=== PATIENT | female | born 1985 | race Caucasian/White ===

== ENCOUNTER 2023-07-12 22:11 | Emergency (ER) | payer OTHER, SELFPAY ==
--- NOTE | ~2023-07-12 | CT_ITS ---
EXAMINATION: CT abdomen pelvis wo con DATE: 07/12/2023 22:57 INDICATION: R flank pain, dysuria, N/V< r/o stone TECHNIQUE: Computed tomography (CT) of the abdomen and pelvis was performed without intravenous contr ast. Automated exposure control and iterative reconstruction technique were employed. The dose-length product was 822.21 mGy-cm. COMPARISON: None. FINDINGS: Lower thorax: Unremarkable Liver: Normal. Biliary/Gallbladder: Gallbladder is absent. No bile duct dilation. Pancreas: No mass or duct dilation. Spleen: Normal. Adrenals:No mass. Kidneys: Mild right perinephric stranding and renal enlargement. Moderate right hydronephrosis. Bilat eral nonobstructing 4 mm stones. Medullary nephrocalcinosis. GI tract: No small or large bowel dilation. Status post appendectomy. Diverticulosis without divertic ulitis. Mesentery/Peritoneum: No ascites, mass, or free air. Retroperitoneum: No mass. Pelvis: Empty urinary bladder. 4 mm right UVJ stone. Absent uterus. Soft Tissues: Soft tissues and body wall unremarkable. Bones: No acute osseous finding. IMPRESSION: 4 mm right UVJ stone causing moderate obstructive uropathy. Reviewed, dictated and finalized at location K.
--- NOTE | ~2023-07-12 | XR_ITS ---
EXAM: XR abdomen/kub 1V DATE: 07/12/2023 23:30 HISTORY: 4mm uvj stone . COMPARISON: CT abdomen pelvis, same date. FINDINGS: Clear lung bases. Status post cholecystectomy and appendectomy. Normal bowel gas pattern. No organomegaly. 4 mm calcification overlying the left renal shadow. A known 4 mm right midpole calci fication is not well seen radiographically. 4 mm calcification overlying the right UVJ. Regional bone s and soft tissues normal for age. Small bone island in the left iliac wing. IMPRESSION: 4 mm right UVJ stone. Reviewed, dictated and finalized at location K. IMPRESSION: 4 mm right UVJ stone.
[2023-07-12 22:12] VITALS: BP 166/106; PULSE 88; RESP 20; TEMP 36.3; O2SAT 98
[2023-07-12 22:32] LABS: Basophils Absolute Auto 0.1 K/mm3 (0.0-0.1); Basophils Percent Auto 0.6 % (0.2-1.2); Eosinophils Absolute Auto 0.4 K/mm3 (0-0.3); Eosinophils Percent Auto 2.6 % (0-4.4); Hemoglobin 13.3 g/dL (12.0-15.0); Immature Granulocyte Absolute 0.05 K/mm3 (0.00-0.031); Immature Granulocyte Percent A 0.3 % (0-0.5); Lymphocytes Absolute Auto 3.75 K/mm3 (0.9-3.2); Lymphocytes Percent Auto 24.3 % (18.3-44.2); Mean Corpuscular HGB Conc 34.1 g/dl (32-36); Mean Platelet Volume 8.8 fl (7.4-10.4); Monocytes Absolute Auto 0.6 K/mm3 (0.1-0.6); Monocytes Percent Auto 4.1 % (2.6-8.5); Neutrophils Absolute Auto 10.5 K/mm3 (1.3-6.7); Neutrophils Percent Auto 68.1 % (45.5-73.1); Platelet Count Result 432 k/mm3 (150-375); Red Blood Count 4.43 M/mm3 (4.2-5.4); White Blood Count 15.4 K/mm3 (4.5-10.0)
[2023-07-12] MEDS: SODIUM CHLORIDE 0.9% IV 1,000 ML 999 ML IV CONT ×2 (22:32→23:22)
[2023-07-12] MEDS: ONDANSETRON INJ 4 MG/2 ML VIAL IV PUSH (22:33)
[2023-07-12] MEDS: HYDROmorphone HCL INJ (*CRX) 1 MG/ML SYR IV PUSH (22:33)
[2023-07-12 22:44] LABS: Appearance Urine Cloudy (Clear); Bacteria Urine None Seen /hpf; Bilirubin Urine Negative (Negative); Blood Urine 2+ (Negative); Color Urine Yellow (Yellow); Glucose Urine UA Negative (Negative); Ketones Urine Trace mg/dL (Negative); Leukocyte Esterase Ur Negative LEU/UL (Negative); Nitrate Urine Negative (Negative); Non Pathogenic Casts 0-2; Protein Urine 1+ mg/dL (Negative); Specific Grav Ur 1.032 (1.001-1.035); Squamous Epithelial Cell Urine Occasional /hpf (Few); Urobilinogen Urine 0.2 mg/dL (<2.0); pH Urine 6.5 (5.0-9.0)
[2023-07-12 22:49] LABS: Alanine Aminotransferase 31 U/L (6-35); Albumin Level 4.8 g/dL (3.5-5.1); Alkaline Phosphatase 64 U/L (38-126); Anion Gap 12 mmol/L (8-16); Aspartate Amino Transferase 28 U/L (14-36); Bilirubin,Total 0.6 mg/dL (0.2-1.3); Blood Urea Nitrogen 24 mg/dL (7-17); Calcium 9.6 mg/dL (8.4-10.2); Carbon Dioxide 23 mmol/L (22-30); Chloride 103 mmol/L (98-107); Estimated CRCL calculation 69 ml/min; Estimated Glomerular Filt Rate > 60; Glucose 134 mg/dL (65-110); Lipase 53 U/L (23-300); Potassium 3.6 mmol/L (3.4-5.0); Sodium 138 mmol/L (137-145)
[2023-07-12 22:52] LABS: Add Urine Microscopic? YES
--- NOTE | 2023-07-12 23:21 | ED.ABDPAIN ---
HPI - Abdominal Pain General Chief Complaint: Abdominal Pain Stated Complaint: back pain, vomiting Time Seen by Provider: 07/12/23 22:17 Source: patient Mode of arrival: ambulatory Limitations: no limitations History of Present Illness HPI narrative: Patient is a 38-year-old female who presents to the ED with report of right flank pain. Patient reports the pain began suddenly at 8 PM tonight. Pain slightly radiates around to her right lower abdomen. Pain has been constant, unable to find a comfortable position. She began to have nausea and vomiting and was unable to keep down any food or drink, which prompted her presentation. She was unable to take anything for pain. She also reports dysuria, urinary urgency with small voids. Denies hematuria. Denies fevers. Denies diarrhea or constipation. Denies history of kidney stones. She has had previous cholecystectomy, hysterectomy, 2 previous C-sections. Related Data Allergies Allergy/AdvReac Type Severity Reaction Status Date / Time Penicillins AdvReac Hives Verified 07/12/23 22:11 Review of Systems Review of Systems: CONSTITUTIONAL: Denies fever, chills, or sweats. CARDIOVASCULAR: Denies chest pain. RESPIRATORY: Denies dyspnea. GASTROINTESTINAL: See HPI. GENITOURINARY: See HPI. SKIN: Denies rash or itching. MUSCULOSKELETAL: See HPI. NEUROLOGIC: Denies headache, numbness, or weakness. All systems reviewed & are unremarkable except as noted in HPI and below Exam Narrative: GENERAL: Very uncomfortable appearing, well-nourished, in moderate distress due to pain. HEAD: Normocephalic, atraumatic. NECK: Supple. No adenopathy, no masses. RESPIRATORY: Airway patent, respirations nonlabored. Clear to auscultation bilaterally, no rales, rhonchi, wheezing. CARDIOVASCULAR: Borderline tachycardic with regular rhythm without murmurs, rubs, or gallops. Peripheral pulses 2+ and equal bilaterally. ABDOMINAL: Soft, tenderness throughout right lower abdomen, nondistended, no hepatosplenomegaly. Normoactive BS. Positive CVA tenderness on right. MUSCULOSKELETAL: Moves all extremities. Strength/ROM intact without gross deformities. Tenderness palpation in right lumbar region. SKIN: Warm, dry, normal color. No rashes. NEURO: A&O X3. Speech clear. Cranial nerves II-XII grossly intact. Steady gait. No ataxic movements. PSYCHIATRIC: Appropriate mood and affect. Normal interaction. Course Vital Signs Vital signs: Vital Signs Temperature 97.4 F L 07/12/23 22:12 Pulse Rate 88 07/12/23 22:12 Respiratory Rate 20 07/12/23 22:12 Blood Pressure 166/106 H 07/12/23 22:12 Pulse Oximetry 98 07/12/23 22:12 Oxygen Delivery Room Air 07/12/23 22:12 Temperature 97.4 F L 07/12/23 22:12 Pulse Rate 88 07/12/23 22:12 Respiratory Rate 20 07/12/23 22:12 Blood Pressure 166/106 H 07/12/23 22:12 Pulse Oximetry 98 07/12/23 22:12 Oxygen Delivery Room Air 07/12/23 22:12 MDM - Abdominal Pain MDM Narrative Medical decision making narrative: Patient presented to ED with right flank pain onset this evening, associated with dysuria, nausea, vomiting. Patient very uncomfortable appearing upon my evaluation. Suspicious for kidney stone. No previous history of kidney stone. Vitals stable. Afebrile. CBC with leukocytosis of 15.4. May be in part related to vomiting. CMP fairly unremarkable. Creatinine 1.0. No records to compare to. Urinalysis with lots of blood, 6-10 WBC, negative leuk esterase, negative nitrates. Patient denied urine complaints prior to onset of pain. Low suspicion for acute UTI. Will send for culture. CT abdomen pelvis obtained and showing 4 mm UVJ stone, mild obstructive uropathy. KUB obtained and visualized stone. Patient updated on lab and imaging findings. She is feeling much better with supportive therapy. She will be discharged with pain and nausea medicine, Flomax, close urology follow-up. She feels comfortable with this plan. Return precau
[2023-07-12] MEDS: TAMSULOSIN HCL 0.4 MG CAPSULE PO (23:22)
[2023-07-12] MEDS: KETOROLAC 30 MG/ML VIAL (*BKC) IV PUSH (23:41)
[2023-07-13 00:43] VITALS: BP 116/73; PULSE 77; RESP 15; O2SAT 100
== END 2023-07-13 00:46 | disposition home or self-care (01) ==
PROVIDERS: Emergency Provider Physician Assistant; PCP Physician Assistant
DX: N13.2 Hydronephrosis with renal and ureteral calculous obstruction (principal); R11.2 Nausea with vomiting, unspecified; Z90.710 Acquired absence of both cervix and uterus; Z90.49 Acquired absence of other specified parts of digestive tract
CPT/HCPCS: 36415; 74018; 74176; 80053; 81001; 81025; 83690; 85025; 87086; 96361; 96374; 96375; 99284; A9270; J1170; J1885; J2405; J7030

== ENCOUNTER 2023-09-13 10:33 | Outpatient (CLI) | payer OTHER, SELFPAY ==
--- NOTE | ~2023-09-13 | XR_ITS ---
XR abdomen/kub 1V 09/13/2023 10:48 INDICATION: Bilateral renal stones TECHNIQUE: KUB COMPARISON: 07/12/2023 FINDINGS: Bowel gas pattern is normal. There is no evidence of free air, mass, organomegaly, ascites or obstruction. There are bilateral renal stones. The bones appear intact. There are cholecystectomy clips. There are surgical clips in the right lower abdomen, likely from prior appendectomy. IMPRESSION: 1: Bilateral nephrolithiasis. Reviewed, dictated and finalized at location L. [employer]IC[employer]
== END 2023-09-13 10:34 | disposition home or self-care (01) ==
PROVIDERS: PCP Physician Assistant; Visit Provider Urology
DX: N20.0 Calculus of kidney (principal)
CPT/HCPCS: 74018